=== PATIENT | male | born 2000 | race Caucasian/White ===

== ENCOUNTER → 2020-07-28 | Outpatient (CLI) | payer BC | END | disposition home or self-care (01) | LOC: LAB 20:14 | PROVIDERS: ATTEND Nurse Practitioner Family | DX: R19.7 Diarrhea, unspecified (principal) ==

== ENCOUNTER → 2020-08-04 | Outpatient (CLI) | payer BC | END | disposition home or self-care (01) | LOC: LAB 12:12 | PROVIDERS: ATTEND Nurse Practitioner Family | DX: F41.9 Anxiety disorder, unspecified (principal); R19.7 Diarrhea, unspecified ==

== ENCOUNTER → 2022-08-10 | Outpatient (CLI) | payer BC | END | disposition home or self-care (01) | LOC: US 09:18 | PROVIDERS: ATTEND Nurse Practitioner Family | DX: R79.89 Other specified abnormal findings of blood chemistry (principal) ==